=== PATIENT | female | born 1945 | race Hispanic/Latino ===

== ENCOUNTER 2016-10-30 19:34 | Observation (INO) | payer OTHER ==
[~2016-10-30] VITALS: Ht 162.6 cm; Wt 80.8 kg
[~2016-10-30 19:34] MED LIST: BACTRIM,SEPT1 TABLET PO; CIPRO500 MG PO; FLAGYL500 MG PO; ZOFRAN4 MG PO
[2016-10-30 20:15] LABS: HEMATOCRIT 40.4 % (36.0-46.0); MCH 27.3 PG (29.0-34.0); MCHC 32.9 G/DL (30.0-36.0); MEAN PLAT.VOLUME 9.5 uM^3 (9.5-12.4); PLATELET COUNT 300 K/uL (156-360); RBC DIS.WIDTH-CV 12.8 % (11.8-14.6); RBC DIS.WIDTH-SD 38.9 % (39-53); RED BLOOD COUNT 4.87 M/uL (3.80-5.20); WHITE BLOOD COUNT 5.9 K/uL (4.1-10.2)
[2016-10-30 20:28] LABS: CHLORIDE 107 mEq/L (99-109); POTASSIUM 3.1 mEq/L (3.7-5.4); SODIUM 141 mEq/L (136-147)
[2016-10-30 20:30] LABS: GLUCOSE 191 mg/dL (70-99)
[2016-10-30 20:31] LABS: ANION GAP 11 MEQ/L (2-14)
[2016-10-30 20:32] LABS: TOTAL BILIRUBIN 0.3 mg/dL (0.0-1.0)
[2016-10-30 20:33] LABS: ALKALINE PHOSPHATASE 75 IU/L (3-129)
[2016-10-30 20:34] LABS: GFR ESTIMATE (CALCULATED) > 59 mL/min/
[2016-10-30 20:35] LABS: UREA NITROGEN (BUN) 15 mg/dL (9-23)
[2016-10-30 20:36] LABS: TROP-I INTERPRETATION NEGATIVE; TROPONIN-I < 0.01 ng/mL (0.0-0.30)
[2016-10-30] MEDS ORDERED: CHLORTHALIDONE25 MG PO (22:26)
[2016-10-30] MEDS ORDERED: POTASSIUM CHLOR8 ME3 PO (22:27)
[2016-10-31 00:05] LABS: MAGNESIUM 2.2 mg/dL (1.3-2.7)
[2016-10-31 00:24] LABS: D-DIMER ELISA 0.29 mg/L FEU (< 0.57)
[2016-10-31 00:25] VITALS: BP 148/75
[2016-10-31 03:01] LABS: TROP-I INTERPRETATION NEGATIVE; TROPONIN-I 0.01 ng/mL (0.0-0.30)
[2016-10-31 04:17] VITALS: BP 126/70
[2016-10-31 07:14] LABS: Estimated Average Glucose 140 mg/dL (70-123); HEMOGLOBIN A1c (GLYCOHEMOGLOB) 6.5 % HGB (Below 5.7)
[2016-10-31 08:11] VITALS: BP 132/64
[2016-10-31 08:29] LABS: HDL CHOLESTEROL 39 MG/DL (Desirable>=50); LDL CHOLESTEROL 122 mg/dL (Desirable<100); NON-HDL CHOLESTEROL 153 mg/dL (Desirable<160); TOTAL CHOLESTEROL 192 mg/dL (Desirable<200); TRIGLYCERIDES 154 MG/DL (Normal: <150)
[2016-10-31 08:38] LABS: TROP-I INTERPRETATION NEGATIVE; TROPONIN-I 0.02 ng/mL (0.0-0.30)
[2016-10-31 09:33] LABS: POINT-OF-CARE METER ID UU13113831
[2016-10-31 12:02] VITALS: BP 129/69
[2016-10-31 12:39] LABS: POINT-OF-CARE METER ID UU13113700
[2016-10-31] MEDS ORDERED: METFORMIN HCL500 MG PO (12:41)
[2016-10-31] MEDS ORDERED: ASPIRIN81 M2 PO (12:41)
[2016-10-31 17:41] LABS: POINT-OF-CARE METER ID UU13113700
== END 2016-10-31 19:35 | disposition home or self-care (01) ==
LOC: EME 19:34 → EDOF 22:22 → 5WEST 10-31 00:12
PROVIDERS: Hospitalist; Physician Assistant Medical
DX: R07.2 Precordial pain (principal); R55 Syncope and collapse; R42 Dizziness and giddiness; I31.3 Pericardial effusion (noninflammatory); I48.0 Paroxysmal atrial fibrillation; I10 Essential (primary) hypertension; E78.5 Hyperlipidemia, unspecified; E11.65 Type 2 diabetes mellitus with hyperglycemia; Z88.0 Allergy status to penicillin; E87.6 Hypokalemia; Z66 Do not resuscitate; Z91.14 Patient's other noncompliance with medication regimen
CPT/HCPCS: 70551; 71020; 80053; 80061; 82948; 83036; 83735; 84484; 85027; 85379; 93005; 93306; 93880; 99281; 99285; G0378; J1650